=== PATIENT | male | born 1970 | race Caucasian/White ===

== ENCOUNTER 2023-11-24 05:44 | Day surgery (SDC) | payer OTHER ==
[~2023-11-24] VITALS: Ht 180.3 cm; Wt 100.0 kg
[2023-11-24] MEDS ORDERED: ALBUTEROL SULFATE 2.5 MG/0.5 ML NEB SOLUTION NEB ONE (05:45)
[2023-11-24] MEDS ORDERED: LIDOCAINE 4% 50 ML SOLUTION TP ONE (05:45)
[2023-11-24] MEDS ORDERED: LIDOCAINE 2% 11 ML JELLY TP ONE (05:45)
[2023-11-24] MEDS ORDERED: BENZOCAINE 20% 50 MCG/SPRAY 57 GM TP ONE (05:45)
[2023-11-24] MEDS ORDERED: SODIUM CHLORIDE 0.9% 0 ML ONE (07:32)
[2023-11-24] MEDS ORDERED: SODIUM CHLORIDE 0.9% 1,000 ML ONE (07:52)
[2023-11-24] MEDS: SODIUM CHLORIDE 0.9% 1,000 ML IV ONE (07:53)
[2023-11-24] MEDS ORDERED: ZOLP-162 PO (08:02)
[2023-11-24] MEDS ORDERED: PRED-729 PO (08:02)
[2023-11-24] MEDS ORDERED: ASCO500 PO (08:02)
[2023-11-24] MEDS ORDERED: ATOR20TA PO (08:02)
[2023-11-24] MEDS ORDERED: MONT-35 PO (08:02)
[2023-11-24] MEDS ORDERED: OMEP20 PO (08:02)
[2023-11-24] MEDS ORDERED: FLUT16SP NASAL (08:02)
[2023-11-24] MEDS ORDERED: GABA-1181 PO (08:02)
[2023-11-24] MEDS ORDERED: ALBU18HF12 IH (08:02)
[2023-11-24] MEDS ORDERED: MIDAZOLAM HCL 2 MG/2 ML VIAL ONE (08:10)
[2023-11-24] MEDS ORDERED: FentaNYL CITRATE PF 100 MCG/2 ML VIAL ONE (08:10)
[2023-11-24 09:25] VITALS: PULSE 108; RESP 16; O2SAT 97
[2023-11-24] MEDS ORDERED: MethylPREDNISolone SOD SUCC 125 MG/2 ML VIAL ONE (09:28)
[2023-11-24] MEDS: MethylPREDNISolone SOD SUCC 125 MG/2 ML VIAL IVP ONE (09:36)
== END 2023-11-24 11:05 | disposition left against medical advice (07) ==
LOC: SURGERY 05:44
PROVIDERS: ATTEND Internal Medicine Critical Care Medicine
DX: J38.4 Edema of larynx (principal); B37.0 Candidal stomatitis; J44.9 Chronic obstructive pulmonary disease, unspecified; G43.909 Migraine, unspecified, not intractable, without status migrainosus; Z98.890 Other specified postprocedural states; Z79.899 Other long term (current) drug therapy
CPT/HCPCS: 31623; 87206; 87101; 87220; 87070; 88108; 88305; 31624; 94640; 71045; 87015; J3010; J2250; J2930; Q9967; J7030; J7613; Z7610